=== PATIENT | male | born 1950 | race Caucasian/White ===

== ENCOUNTER → 2018-04-25 | Outpatient (CLI) | payer MEDICARE ==
--- NOTE | 2018-04-25 16:34 | PCVCIMAG ---
EXAM: AORTOILIAC DUPLEX INDICATION: Peripheral arterial disease FINDINGS: AORTA: Suprarenal aorta measures maximum diameter of 2.9 cm. There is not a fusiform infrarenal aortic aneurysm. The infrarenal aorta measures maximum diameter of 2.1 cm. No aortic stenosis. RIGHT COMMON ILIAC ARTERY: Maximum diameter is 1.4 cm. No significant stenosis. RIGHT EXTERNAL ILIAC ARTERY: No significant stenosis. LEFT COMMON ILIAC ARTERY: Maximum diameter is 1.4 cm. No significant stenosis. LEFT EXTERNAL ILIAC ARTERY: No significant stenosis. IMPRESSION: No abdominal aortic aneurysm. No aortoiliac stenosis seen. LOC:[id number]
--- NOTE | 2018-04-25 16:35 | PCVCIMAG ---
EXAM: BILATERAL LOWER EXTREMITY ARTERIAL DUPLEX INDICATION: Peripheral Arterial Disease. Leg pain. FINDINGS: Right Leg: Satisfactory arterial waveforms throughout the common/profunda/superficial femoral, popliteal, anterior tibial, peroneal, and posterior tibial arteries. No flow limiting stenosis seen. Left Leg: Satisfactory arterial waveforms throughout the common/profunda/superficial femoral, popliteal, anterior tibial, peroneal, and posterior tibial arteries. No flow limiting stenosis seen. IMPRESSION: No flow limiting stenosis in the right lower extremity. No flow limiting stenosis in the left lower extremity. LOC:[id number]
== END | disposition home or self-care (01) ==
LOC: PCVCIMAG 14:27
PROVIDERS: ATTEND Internal Medicine Cardiovascular Disease
DX: Z01.818 Encounter for other preprocedural examination (principal); I73.9 Peripheral vascular disease, unspecified; I25.10 Atherosclerotic heart disease of native coronary artery without angina pectoris; E78.5 Hyperlipidemia, unspecified; M79.604 Pain in right leg; M79.605 Pain in left leg; Z82.49 Family history of ischemic heart disease and other diseases of the circulatory system; Z87.891 Personal history of nicotine dependence
CPT/HCPCS: 80061; 93005; 93925; 93978; G0463

== ENCOUNTER → 2018-04-30 | Outpatient (CLI) | payer MEDICARE ==
--- NOTE | 2018-04-30 11:43 | PCVCIMAG ---
APPROVED REPORT Study performed: 04/30/2018 09:39:18 Exam: Stress Echocardiogram Indication: Dyspnea, HLP, pre-op clearance Patient Location: Echo lab Stress Nurse: Sybil Gonzalez RN Status: routine Ht: 6 ft 4 in HR: 89 bpm BP: 130/92 mmHg Rhythm: NSR Procedure The patient underwent an Exercise Stress Test using the Kali Protocol. Blood pressure, heart rate, and EKG were monitored. An Echocardiogram was performed by graphic technician in four stages in quad fashion. At peak stress, four selected images were obtained and placed side by side with resting images for comparison. Stress Test Details Stress Test: Exercise stress testing was performed using a Kali protocol. HR Resting HR: 89 bpmMax Heart Rate (APMHR): 155 bpm Max HR Achieved: 176 bpmTarget HR (85% APMHR): 131 bpm % of APMHR: 113 Recovery HR: 103 bpm HR response to stress: Normal HR response to stress BP Resting BP: 130/92 mmHg Max BP: 164/80 mmHg Recovery BP: 160/84 mmHg BP response to stress: Normal blood pressure response to stress. ECG Resting ECG: Sinus Rhythm Stress ECG: Sinus Rhythm ST Change: Normal Arrhythmia: rare isolated PVC Recovery ECG: Sinus Rhythm Recovery ST Change: Normal Recovery Arrhythmia: None Clinical Reason for Termination: Maximal effort Stress Symptoms: Dyspnea Exercise duration: 11 min 35 sec Highest Stage Achieved: Stage 4: 4.2 mph at 16% grade. Exercise capacity: 13.4 METs Overall Exercise Capacity for Age: Good Scale: Active Angina Score: None Pre-Stress Echo The resting Echocardiogram showed normal left ventricular contractility with an estimated Ejection Fraction of about >55%. Normal wall motion in all segments on baseline images. Post-Stress Echo The stress Echocardiogram showed normal left ventricular contractility with an estimated Ejection Fraction of about 65%. Normal augmentation of wall motion in all segments on post stress images. Clinical No clinical or ECG evidence for ischemia. Conclusion Clinical Response: Non-ischemic Exercise Capacity: Superior Stress ECG Response: Non-ischemic Stress Echo Images: Non-ischemic Mild aortic insufficiency and mitral insufficiency. Thickened mitral valve leaflet appearance without stenosis. Aortic sclerosis, no stenosis. The left ventricle is normal in size and wall thickness in both the rest and stress images. Other Information Study Quality: Good <Conclusion> Mild aortic insufficiency and mitral insufficiency. Thickened mitral valve leaflet appearance without stenosis. Aortic sclerosis, no stenosis. The left ventricle is normal in size and wall thickness in both the rest and stress images.
== END | disposition home or self-care (01) ==
LOC: PCVCIMAG 10:00
PROVIDERS: ATTEND Internal Medicine Cardiovascular Disease
DX: Z01.810 Encounter for preprocedural cardiovascular examination (principal); I25.10 Atherosclerotic heart disease of native coronary artery without angina pectoris; I73.9 Peripheral vascular disease, unspecified; R06.00 Dyspnea, unspecified
CPT/HCPCS: 93325; 93351